=== PATIENT | female | born 1985 | race Caucasian/White ===

== ENCOUNTER 2022-12-26 08:08 | Outpatient (REF) | payer OTHER, SELFPAY ==
[2022-12-26 11:18] LABS: MANUAL DIFF FLAG NO
[2022-12-26 11:41] LABS: Basophils Percent Auto 0.4 % (0-2); Eosinophils Absolute Auto 0.2 X10*3/uL (0.0-0.4); Eosinophils Percent Auto 2.3 % (0-4); Hematocrit 44.3 % (37.0-47.0); Hemoglobin 14.3 g/dl (12.0-16.0); Imm Gran Abs Auto 0.02 X10*3/uL (0.00-0.03); Imm Gran Pct Auto 0.3 % (0.0-0.4); Lymphocytes Percent Auto 28.5 % (20-40); Mean Corpuscular HGB Conc 32.3 g/dl (31.0-35.0); Mean Corpuscular Hemoglobin 28.9 pg (27.0-33.0); Mean Corpuscular Volume 89.7 fL (80.0-98.0); Mean Platelet Volume 10.1 fL (9.4-12.3); Monocytes Absolute Auto 0.4 X10*3/uL (0.1-1.2); Monocytes Percent Auto 5.2 % (2-11); Neutrophils Absolute Auto 4.4 x10*3/uL (2.0-8.3); Neutrophils Percent Auto 63.3 % (45-73); Platelet Count 289 X10*3/uL (160-400); Red Blood Count 4.94 X10*6/uL (4.20-5.50); Red Cell Distribution Width 12.9 % (11.0-16.0)
[2022-12-26 12:34] LABS: Alanine Aminotransferase 10 U/L (0-31); Albumin Level 4.2 g/dL (3.5-5.0); Alkaline Phosphatase 71 U/L (39-117); Anion Gap 13 (12-20); Aspartate Amino Transferase 14 U/L (5-31); Bilirubin Total 0.6 mg/dL (0.0-1.0); Blood Urea Nitrogen 10 mg/dL (9-16); Calcium 9.3 mg/dL (8.4-10.2); Carbon Dioxide 26 mmol/L (22-29); Chloride 106 mmol/L (96-108); Cholesterol 176 mg/dL; Estimated Glomerular Filt Rate > 60; Folate 7.9 ng/mL (> or = 4.0); Glucose Fasting 82 mg/dL (60-99); HDL Cholesterol 54 mg/dL; LDL Cholesterol Calculated 109 mg/dl; Potassium 4.4 mmol/L (3.3-5.1); Rheumatoid Factor < 13.0 IU/mL (<15.0); Sodium 141 mmol/L (135-145); TSH reflex Free T4 1.13 uIU/mL (0.32-4.0); Total Protein 7.2 g/dL (6.5-8.0); Triglycerides 68 mg/dL; Vitamin B12 377 pg/mL (200-900); Vitamin D 25-OH Total 31.4 ng/mL (>30)
[2022-12-31 13:08] LABS: Anti Nuclear Antibody Screen POSITIVE (NEGATIVE)
== END 2022-12-26 08:09 | disposition home or self-care (01) ==
LOC: HO.HMGCLDS 08:08
PROVIDERS: PCP Nurse Practitioner Family; Visit Provider Nurse Practitioner Family
DX: M25.551 Pain in right hip (principal); M25.552 Pain in left hip; Z76.89 Persons encountering health services in other specified circumstances
CPT/HCPCS: 36415; 80053; 80061; 82306; 82607; 82746; 84443; 85025; 86038; 86039; 86431

== ENCOUNTER 2023-02-19 14:28 | Outpatient (AMB) | payer OTHER, SELFPAY ==
[2023-02-19 14:31] VITALS: BP 112/86; PULSE 61; O2SAT 100; BMI 40.2
--- NOTE | 2023-02-19 14:31 | A.OFFPC_ITS ---
Vital Signs 02/19/23 14:31 Height 5 ft 2 in Weight 220 lb BMI 40.2 BP 112/86 Blood Pressure Location Lt brachial Position Sitting Pulse 61 Pulse Source Pulse Oximeter Temp Source Skin Pulse Oximetry (%) 100 Oxygen Delivery Method Room Air Intake Visit Reasons: PE with labs Allergies No Known Allergies Allergy (Verified 02/19/23 14:42) Medication List - Last Reconciled 02/19/23 by RALEIGH Tijerina No Known Home Meds Tobacco use date assessed: 02/19/23 Dental Screening Dental Screen Date: 02/19/23 Did you have a dental visit in the last 12 months?: No Did you have a dental problem in the last 6 months where you did not have access to dental care?: No HPI PE with labs HPI Details Patient is a 37-year-old female presents today physical exam. Medical history significant for depression, anxiety, obesity, bilateral hip pain - patient reports lateral bilateral hip pain that radiate down for long time now- would like to hold off on physical therapy referral, positive LISA-will be seeing rheumatology 03/2023. Patient has an upcoming appointment with gynecology for Pap smear 02/2023. Patient reports that [facility] hear [facility] and they will e-mail her after 04/2023 for an appointment. Patient did not hear from counseling yet, will follow-up on this. Patient reports ongoing anxiety, she meditate, reports thinking constantly. No shortness of breath or chest pain. Recent blood work results reviewed with the patient. [facility] Medical History (Updated 02/20/23 @ 12:56 by RALEIGH Tijerina) Encounter to establish care Obesity (BMI 30-39.9) Surgical History H/O removal of cyst History of adenoidectomy History of placement of ear tubes History of removal of skin mole History of sinus surgery History of tonsillectomy Family History Mother Endometriosis Father No problems noted. Brother No problems noted. Brother No problems noted. Social History Housing: House Alcohol intake: former Patient Tobacco Use Status: Current everyday Tobacco user Cigarettes Per Day: 4 e-Cigarette/Vaping Use: Never Used service: No Current occupational status: unemployed Current occupational exposures/hazards: No Cognitive needs: No Hearing needs: No Vision needs: Yes (glasses/contacts) Questionnaire PHQ-9 Over the last 2 weeks, how often have you been bothered by any of the following problems? 1. Little interest or pleasure in doing things: nearly every day 2. Feeling down, depressed, or hopeless: several days 3. Trouble falling or staying asleep, or sleeping too much: several days 4. Feeling tired or having little energy: nearly every day 5. Poor appetite or overeating: nearly every day 6. Feeling bad about yourself - or that you are a failure or have let yourself or your family down: more than half the days 7. Trouble concentrating on things, such as reading the newspaper or watching television: nearly every day 8. Moving or speaking so slowly that other people could have noticed. Or the opposite - being so fidgety or restless that you have been moving around a lot more than usual: not at all 9. Thoughts that you would be better off or of hurting yourself in some way: not at all Total score: 16 Depression Screening Interpretation: Positive Depression Screening Follow-up: Community Mental Health Worker F/U [id number] - PHQ-9 Billing: Yes Source: Developed by Drs. Jorgito West, Belkys Ferrer, Bennett Mitchell and colleagues, with an educational mohsen from [employer]. Thrive Questionnaire Date Thrive assessed: 12/24/22 AUDIT C Alcohol Use Questionnaire (AUDIT-C) 1. How often do you have a drink containing alcohol?: Never 2. How many drinks containing alcohol do you have on a typical day when you are drinking?: 1 or 2 3. How often do you have six or more drinks on one occasion?: Never Total Score: 0 Score Reviewed/Action Taken: No BERNARD-7 AMB Questionnaire BERNARD-7 Date BERNARD - 7 assessed: 02/19/23 Feeling nervous, anxious, or on edge: 3 = Nearly every day Not being able to stop or control worryin = Nearly every day Worrying too much about different things: 3 = Nearly every day Trouble relaxin = Nearly every day Being so restless that it is hard to sit still: 3 = Nearly every day Becoming easily annoyed or irritable: 3 = Nearly every day Feeling afraid as if something awful might happen: 1 = Several days Total BERNARD-7 score (0-4 normal; 5-9 mild; 10-14 moderate; 15-21 severe): 19 Source: Developed by Drs. Jorgito West, Belkys Ferrer, Bennett Mitchell and colleagues, with an educational mohsen from [employer]. BERNARD-7 Assessment Billing BERNARD-7 Assessment Tool: BERNARD-7 Assessment 37747 Review of Systems Const Denies body aches, Denies chills, Denies fever(s) and Denies headache(s) Eyes Denies change in vision ENT Denies dizziness, Denies otalgia, Denies headache(s), Denies nasal discharge, Denies sinus pain and Denies sore throat Card Denies chest pain, Denies edema, Denies lightheadedness and Denies dyspnea Resp Denies cough and Denies dyspnea GI Denies constipation, Denies diarrhea, Denies nausea and Denies vomiting Denies dysuria Musc Denies myalgias and Reports arthralgias Skin/Breast Denies rash Neuro Denies dizziness and Denies headache(s) Physical exam (Primary Care) Vital Signs: Last Vital Signs Pulse 61 02/19/23 14:31 BP 112/86 02/19/23 14:31 Pulse Ox 100 02/19/23 14:31 Oxygen Delivery Method Room Air 02/19/23 14:31 BMI result Body Mass Index 40.2 Tobacco/Smoking Status: Tobacco use Status Tobacco use date assessed 02/19/23 02/19/23 14:37 Patient Tobacco Use Status Current everyday Tobacco 02/19/23 14:37 e-Cigarette/Vaping Use Never Used 02/19/23 14:37 PHQ-9: PHQ-9 Score PHQ-9: Total score 16 02/19/23 14:44 Depression Screening Interpretation: Positive Depression Screening Follow-up: Community Mental Health Worker F/U Thrive Assessment: Date of Thrive Assessment Date Thrive assessed 12/24/22 02/19/23 14:37 Const General: cooperative and no acute distress Orientation/consciousness: patient oriented x3 HENMT Other: Bilateral TM with scarring, no erythema, history of ear tubes Head: Yes normocephalic and Yes atraumatic Face and sinus: Yes sinuses nontender Mouth: oropharynx normal and moist mucous membranes Throat: Yes posterior oropharynx normal Eyes General: appearance normal, both eyes and all related structures Pupils: Equal, round and reactive pupils present EOM: EOMs intact bilaterally Neck Neck: Yes normal visual inspection, Yes full ROM and Yes no lymphadenopathy Thyroid: Thyroid normal Resp Effort & Inspection: normal respiratory effort and able to speak in complete sentences Auscultation: clear to auscultation bilaterally, no crackles, no rales, no rhonchi and no wheezes Cardio Rate: regular rate Rhythm: regular rhythm Heart sounds: S1 normal heart sound present, S2 normal heart sound present and no murmurs GI Palpation (GI): Soft to palpation, not firm, nontender, no guarding, not rigid and no hepatosplenomegaly Auscultation: normal bowel sounds General: No CVA tenderness Back/Spine/Pelvis Back: No CVA tenderness Skin General skin exam: no rashes or lesions noted Neuro General: patient oriented x3 Cranial nerves: Yes Equal, round and reactive pupils present Gait exam (Neuro): Normal gait present Extrem General: Yes full ROM and No edema Assessment and Plan Assessment & Plan (1) Bilateral hip pain: Code(s): M25.551 - Pain in right hip; M25.552 - Pain in left hip Plan: Will obtain hip x-rays, she does not take anything for pain - not interested at this time Patient would like to hold off on physical therapy referral (2) Cervical cancer screening: Code(s): Z12.4 - Encounter for screening for malignant neoplasm of cervix Plan: Patient has an upcoming appointment with gynecology (3) Anxiety: Code(s): F41.9 - Anxiety disorder, unspecified Plan: Psychiatry and counseling referral - will follow-up - message sent to mental health worker here in the office Trial of hydroxyzine 10 mg b.i.d. p.r.n.-educated about drowsiness (4) Depression: Code(s): F32.A - Depression, unspecified Qualifiers: Depression Type: other depression Qualified Code(s): F32.89 - Other specified depressive episodes Plan: Psychiatry and counseling referral - will follow-up - message sent to mental health worker here in the office Patient would like to hold off on pharmacological intervention at this time Patient denies SI or HI Patient provided with crisis phone number (5) Positive LISA (antinuclear antibody): Code(s): R76.8 - Other specified abnormal immunological findings in serum Plan: Patient has an upcoming appointment with [facility] 03/2023 (6) Morbid obesity with BMI of 40.0-44.9, adult: Code(s): E66.01 - Morbid (severe) obesity due to excess calories; Z68.41 - Body mass index [BMI] 40.0-44.9, adult Plan: Healthy food choices and exercise as tolerated Patient would like to hold off on dietitian or weight management referral at this time (7) Adult general medical exam: Code(s): Z00.00 - Encounter for general adult medical examination without abnormal findings (8) Nicotine dependence: Comment: Smoke cigarettes 3-4/day and marijuana Code(s): F17.200 - Nicotine dependence, unspecified, uncomplicated Plan: Encouraged smoking cessation Plan Follow-up in 1 year for physical exam or sooner as needed Orders: Orders XR hips ROCÍO min 3V 02/19/23 M25.551 - Pain in right hip, M25.552 - Pain in left hip Medications: New hydroxyzine HCl 10 mg PO BID PRN 20 tabs 0RF anxiety F41.9 - Anxiety disorder, unspecified Coding Level of Care Code Est Pt Prev Care 18-39y([id number]) Diagnoses Bilateral hip pain M25.551; M25.552 Cervical cancer screening Z12.4 Anxiety F41.9 Depression F32.89 Depression Type: other depression Positive LISA (antinuclear antibody) R76.8 Morbid obesity with BMI of 40.0-44.9, adult E66.01; Z68.41 Adult general medical exam Z00.00 Nicotine dependence F17.200 Additional Codes BERNARD-7 Assessment Billing - BERNARD-7 Assessment Tool: BERNARD-7 Assessment [id number] ([id number])
== END 2023-02-19 15:03 | disposition home or self-care (01) ==
PROVIDERS: PCP Nurse Practitioner Family; Visit Provider Nurse Practitioner Family
DX: Z00.00 Encounter for general adult medical examination without abnormal findings (principal); F41.9 Anxiety disorder, unspecified; E66.01 Morbid (severe) obesity due to excess calories; Z68.41 Body mass index [BMI] 40.0-44.9, adult; M25.551 Pain in right hip; M25.552 Pain in left hip; F32.89 Other specified depressive episodes; R76.8 Other specified abnormal immunological findings in serum; F17.200 Nicotine dependence, unspecified, uncomplicated
CPT/HCPCS: 99395

== ENCOUNTER 2023-03-11 10:22 | Outpatient (AMB) | payer OTHER, SELFPAY ==
[2023-03-11 10:32] VITALS: BP 120/80; BMI 39.9
--- NOTE | 2023-03-11 10:32 | A.OFFVIS_ITS ---
Intake Vital Signs 03/11/23 10:32 Height 5 ft 2 in Weight 218 lb BMI 39.9 BP 120/80 Intake Visit Reasons: New patient Annual Intake Note: Periods and moods are not manageable , heavy bleeding and strong cramps that medication is not helping and getting cramps towards the end of her period, getting back, hip , and pelvic pain. Energy level dropping right before period starts and feeling rage the day before period starts. Feeling very overwhelmed with mental health and health concerns in general. Dowel Pin Man Required: No Information Interpreted: non-clinical & clinical Lead Teacher: Lead Teacher Present (Aidyn) Allergies No Known Allergies Allergy (Verified 03/11/23 10:39) Is last menstrual period known: Yes Last menstrual period: 02/17/23 Post menopausal: No HPI New patient Annual HPI Details Patient is here for new public health epidemiologist exam it has been at least 5 years since she has had 1. She has a number of concerns today. She has noticed that her periods have gotten heavier and cramp ear and she is troubled by the increased mood changes that she has before her. And then she suffers through her. And then she has a few days of feeling better before the whole cycle starts again. She wonders if she has got PCOS she wonders if she has endometriosis she has heard about fibroids. She has struggled with weight gain and loss though she feels she has been somewhat maintaining at around 200 though today she is at 02:18 though she notes a couple of lb weight loss since the last time she was weighed. She has been challenged by depression and anxiety and she wonders if she has ADHD and other diagnoses. She has been paying a lot of internal intention to the challenges of life and is currently living with her parents. She has been having lots of somatic symptoms and fatigue and discomfort in her body so much so that it makes it hard to move and to get down on the floor and do exercises because she is sore to start with before she even gets going. She does have a dog that she walks but he gets very excited and he is very strong and she worries that she would not have the strength to control him if he gets excited about another animal or something. She has an appointment in April for a preliminary discussion to get evaluated for ADHD and she has an appointment coming up though she has been told that would be by phone with psychiatry within this institution and she is hoping that there will be a therapist connected with that appointment as well. She has recently seen her primary care provider and has had a whole lot of blood work that done that was fasting and she said all the levels were fine the exception of the LISA which was positive so she is awaiting an appointment with Rheumatology in March to get evaluated for that. She wonders about the PCOS and what else could be explaining all of her symptoms. She is not currently sexually active and she made a choice sometime ago to use condoms for control though she had used a Mirena in the past to help control her periods and she recalls that it did do that but she is not at all interested in having a Mirena again. She wants to stay away from hormones and if she can fix something by understanding what the issue is and making it better without hormones as she would prefer that. [facility] Medical History Encounter to establish care Obesity (BMI 30-39.9) Surgical History H/O removal of cyst History of adenoidectomy History of placement of ear tubes History of removal of skin mole History of sinus surgery History of tonsillectomy Family History (Updated 03/11/23 @ 10:40 by ANKITA Jaime) Mother Endometriosis Father No problems noted. Brother No problems noted. Brother No problems noted. Maternal Grandmother Ovarian cancer Social History (Updated 03/11/23 @ 10:40 by ANKITA Jaime) Housing: House Alcohol intake: former Patient Tobacco Use Status: Current everyday Tobacco user Cigarettes Per Day: 4 e-Cigarette/Vaping Use: Never Used Substance Use Type: Marijuana service: No Current occupational status: unemployed Current occupational exposures/hazards: No Cognitive needs: No Hearing needs: No Vision needs: Yes (glasses/contacts) Female Reproductive History Menstrual Age of Menarche: 13 Duration of menses: 6-7 days Date of last menstrual period: 02/17/23 control method: none Total pregnancies: 1 Ab induced: 1 Physical Exam Vital Signs: Last Vital Signs BP 120/80 03/11/23 10:32 BMI result Body Mass Index 39.9 Const Other: Patient has some thinning of her hair on her scalp and has increased facial hair that she plucks. She notes some increased acne where she has plucked General: healthy appearing, comfortable, no acute distress, well developed and alert Nutritional Appearance: average body habitus and obese Orientation/consciousness: patient oriented x3 Limitations: no limitations HEENT Head: Yes normocephalic Neck Neck: Yes normal visual inspection Thyroid: Thyroid normal Chest Chest palpation & inspection: normal inspection of the chest Breast/axilla inspection: normal inspection of the breasts and normal inspection of the axillae Breast/axilla palpation: normal palpation of the breasts and normal palpation of the axillae Resp Effort & Inspection: normal respiratory effort GI Inspection: Yes normal to inspection, No Abdominal wall edema and No distended Palpation (GI): Soft to palpation and nontender General: Yes bladder normal to palpation External Female Exam: normal external appearance and normal appearance of the urethra Speculum Exam - Vagina: normal appearance of the vagina, normal palpation and normal vaginal discharge Speculum Exam - Cervix: normal appearance of the cervix, normal palpation, Nulliparous cervix present, nontender and Other cervical findings present (There is a cervical polyp in the os friable with Pap.) Bimanual exam- vagina & uterus: normal bimanual exam, normal palpation, uterine size normal, bladder normal to palpation, consistency normal, normal palpation, uterine mobility normal, uterine shape normal, No Cervical tenderness present, non-tender and no cervical motion tenderness Bimanual Exam- Adnexa, other: normal adnexae, no masses, normal and No adnexal tenderness Neuro General: patient oriented x3 Assessment & Plan Assessment & Plan (1) Morbid obesity with BMI of 40.0-44.9, adult: Code(s): E66.01 - Morbid (severe) obesity due to excess calories; Z68.41 - Body mass index [BMI] 40.0-44.9, adult (2) Cervical cancer screening: Code(s): Z12.4 - Encounter for screening for malignant neoplasm of cervix (3) Anxiety: Code(s): F41.9 - Anxiety disorder, unspecified (4) Depression: Code(s): F32.A - Depression, unspecified Qualifiers: Depression Type: other depression Qualified Code(s): F32.89 - Other specified depressive episodes (5) Cervical polyp: Code(s): N84.1 - Polyp of cervix uteri (6) Well woman exam with routine gynecological exam: Code(s): Z01.419 - Encounter for gynecological examination (general) (routine) without abnormal findings (7) Nicotine dependence: Comment: Smoke cigarettes 3-4/day and marijuana Code(s): F17.200 - Nicotine dependence, unspecified, uncomplicated (8) Screen for sexually transmitted diseases: Code(s): Z11.3 - Encounter for screening for infections with a predominantly sexual mode of transmission (9) Dysmenorrhea, unspecified: Code(s): N94.6 - Dysmenorrhea, unspecified (10) Hirsutism: Code(s): L68.0 - Hirsutism Plan Patient is here for new public health epidemiologist exam it has been at least 5 years since she has had 1. She has a number of concerns today. She has noticed that her periods have gotten heavier and cramp ear and she is troubled by the increased mood changes that she has before her. And then she suffers through her. And then she has a few days of feeling better before the whole cycle starts again. She wonders if she has got PCOS she wonders if she has endometriosis she has heard about fibroids. She has struggled with weight gain and loss though she feels she has been somewhat maintaining at around 200 though today she is at 02:18 though she notes a couple of lb weight loss since the last time she was weighed. She has been challenged by depression and anxiety and she wonders if she has ADHD and other diagnoses. She has been paying a lot of internal intention to the challenges of life and is currently living with her parents. She has been having lots of somatic symptoms and fatigue and discomfort in her body so much so that it makes it hard to move and to get down on the floor and do exercises because she is sore to start with before she even gets going. She does have a dog that she walks but he gets very excited and he is very strong and she worries that she would not have the strength to control him if he gets excited about another animal or something. She has an appointment in April for a preliminary discussion to get evaluated for ADHD and she has an appointment coming up though she has been told that would be by phone with psychiatry within this institution and she is hoping that there will be a therapist connected with that appointment as well. She has recently seen her primary care provider and has had a whole lot of blood work that done that was fasting and she said all the levels were fine the exception of the LISA which was positive so she is awaiting an appointment with Rheumatology in March to get evaluated for that. She wonders about the PCOS and what else could be explaining all of her symptoms. She is not currently sexually active and she made a choice sometime ago to use condoms for control though she had used a Mirena in the past to help control her periods and she recalls that it did do that but she is not at all interested in having a Mirena again. She wants to stay away from hormones and if she can fix something by understanding what the issue is and making it better without hormones as she would prefer that. All of these issues were discussed at great length. I will order some lab work that maybe point to some hormonal imbalances such as PCOS in addition I am ordering a pelvic ultrasound to check for fibroids her any other issues and we will have a visit afterwards to discuss. I did discuss how some of the symptoms she is experiencing might be ameliorated by use of a Mirena again but she is not interested in it at this time I did discuss the other options which would not be recommended in her case including control pills because of her smoking and other her methods that would promote increased risk of weight gain and obesity such as Depo-Provera and Nexplanon. I will refer her to Dr. Cooper for evaluation and removal of the cervical polyp but we will await the Pap smear results 1st. She and I will have a visit after the pelvic ultrasound to discuss the results discussed that endometriosis diagnosis is arrived at after symptomatic treatment of dysmenorrhea is attempted and final diagnosis is usually made laparoscopically. Discussed also the very real challenges of moving past areas of frustration in one's life be a they physical or emotional or otherwise and that sometimes really pushing oneself to trying get moving can be a helpful tool though it is very challenging I did give her information about the weight loss program which she may wish to seek a referral for. I also gave her the written information about the Mirena IU S. I will have a visit with her after the ultrasound and labs. Orders: Orders Bacterial Vaginosis Panel Today Z01.419 - Encounter for gynecological examination (general) (routine) without abnormal findings CT NG by PCR Today Z01.419 - Encounter for gynecological examination (general) (routine) without abnormal findings US pelvic and transvaginal Today E66.01 - Morbid (severe) obesity due to excess calories, F17.200 - Nicotine dependence, unspecified, uncomplicated, F32.A - Depression, unspecified, F41.9 - Anxiety disorder, unspecified, N84.1 - Polyp of cervix uteri, N94.6 - Dysmenorrhea, unspecified, Z01.419 - Encounter for gynecological examination (general) (routine) without abnormal findings, Z11.3 - Encounter for screening for infections with a predominantly sexual mode of transmission, Z12.4 - Encounter for screening for malignant neoplasm of cervix, Z68.41 - Body mass index [BMI] 40.0-44.9, adult Hepatitis B Surface Antigen Today Z11.3 - Encounter for screening for infections with a predominantly sexual mode of transmission Hepatitis C Antibody Today Z11.3 - Encounter for screening for infections with a predominantly sexual mode of transmission HIV Ab/Ag Today Z11.3 - Encounter for screening for infections with a predominantly sexual mode of transmission Syphilis Screen Today Z11.3 - Encounter for screening for infections with a predominantly sexual mode of transmission DHEA Sulfate Today L68.0 - Hirsutism, N94.6 - Dysmenorrhea, unspecified Lutenizing Hormone Today L68.0 - Hirsutism, N94.6 - Dysmenorrhea, unspecified Testosterone, Free/Total Today L68.0 - Hirsutism, N94.6 - Dysmenorrhea, unspecified Pap Smear Today Z01.419 - Encounter for gynecological examination (general) (routine) without abnormal findings Coding Level of Care Code New Pt Prev Care [id number]([id number] Diagnoses Morbid obesity with BMI of 40.0-44.9, adult E66.01; Z68.41 Cervical cancer screening Z12.4 Anxiety F41.9 Depression F32.89 Depression Type: other depression Cervical polyp N84.1 Well woman exam with routine gynecological exam Z01.419 Nicotine dependence F17.200 Screen for sexually transmitted diseases Z11.3 Dysmenorrhea, unspecified N94.6 Hirsutism L68.0
== END 2023-03-11 12:54 | disposition home or self-care (01) ==
LOC: HO.HWS 10:22
PROVIDERS: PCP Nurse Practitioner Family; Visit Provider Advanced Practice Midwife
DX: Z01.419 Encounter for gynecological examination (general) (routine) without abnormal findings (principal); E66.01 Morbid (severe) obesity due to excess calories; Z68.41 Body mass index [BMI] 40.0-44.9, adult; Z12.4 Encounter for screening for malignant neoplasm of cervix; F41.9 Anxiety disorder, unspecified; F32.89 Other specified depressive episodes; N84.1 Polyp of cervix uteri; F17.200 Nicotine dependence, unspecified, uncomplicated; Z11.3 Encounter for screening for infections with a predominantly sexual mode of transmission; N94.6 Dysmenorrhea, unspecified; L68.0 Hirsutism
CPT/HCPCS: 99385

== ENCOUNTER 2023-03-11 10:22 | Outpatient (REF) | payer OTHER, SELFPAY ==
[2023-03-12 06:21] LABS: CT PCR NOT DETECTED (Not Detect.); NG PCR NOT DETECTED (Not Detect.)
[2023-03-12 12:07] LABS: BV Int Neg Control Negative (Negative); BV Int Pos Control Positive (Positive)
[2023-03-17 23:08] LABS: HPV mRNA E6/E7 rflx Not Detected (Not Detected)
== END 2023-03-11 10:23 | disposition home or self-care (01) ==
LOC: HO.LNP 10:22
PROVIDERS: PCP Nurse Practitioner Family; Visit Provider Advanced Practice Midwife
DX: Z01.419 Encounter for gynecological examination (general) (routine) without abnormal findings (principal); E66.01 Morbid (severe) obesity due to excess calories; Z12.4 Encounter for screening for malignant neoplasm of cervix; F41.9 Anxiety disorder, unspecified; F32.89 Other specified depressive episodes; N84.1 Polyp of cervix uteri; F17.200 Nicotine dependence, unspecified, uncomplicated; Z11.3 Encounter for screening for infections with a predominantly sexual mode of transmission; N94.6 Dysmenorrhea, unspecified; L68.0 Hirsutism; F17.210 Nicotine dependence, cigarettes, uncomplicated
CPT/HCPCS: 0353U; 87480; 87510; 87624; 87660; 88142

== ENCOUNTER 2023-03-20 12:56 | Outpatient (REF) | payer OTHER, SELFPAY ==
--- NOTE | ~2023-03-20 | US_ITS ---
EXAMINATION: US PELVIS CLINICAL INFORMATION: Morbid/severe obesity due to excess calories. COMPARISON: None available. TECHNIQUE: Ultrasound of the pelvis is performed using both transabdominal and transvaginal transducers along with Doppler. Transvaginal imaging is performed due to inadequate visualization transabdominally. FINDINGS: UTERUS: The uterus is anteverted and measures 7.5 x 3.3 x 4.7. The double wall endometrial thickness is 0.4 cm. The uterus is smooth in contour and has heterogeneous myometrium. No visible fibroid. There is a complex nabothian cyst with central echoes. It measures 1.4 x 1.2 x 1.2 cm. ADNEXA: Both ovaries are visualized. There is normal color flow to the adnexa. There is no ovarian torsion. There is no pelvic ascites or fluid collection. Right ovary measures 3.3 x 2.4 x 2.2 cm and volume 8.9 mL. Left ovary measures 2.7 x 2.0 x 2.0 cm. 5.6 mL US/US pelvic and transvaginal IMPRESSION: 1. Complex nabothian cyst measuring 1.4 cm. 2. The uterus is unremarkable.
== END 2023-03-20 12:57 | disposition home or self-care (01) ==
LOC: HO.US 12:56
PROVIDERS: PCP Nurse Practitioner Family; Visit Provider Advanced Practice Midwife
DX: N84.1 Polyp of cervix uteri (principal); N94.6 Dysmenorrhea, unspecified; E66.01 Morbid (severe) obesity due to excess calories; Z68.41 Body mass index [BMI] 40.0-44.9, adult; F17.200 Nicotine dependence, unspecified, uncomplicated
CPT/HCPCS: 76830; 76856

== ENCOUNTER 2023-04-08 13:20 | Outpatient (AMB) | payer OTHER, SELFPAY ==
[2023-04-08 13:36] VITALS: BP 122/78; BMI 39.9
--- NOTE | 2023-04-08 13:36 | MHC.OFFVIS ---
Intake Vital Signs 04/08/23 13:36 Height 5 ft 2 in Weight 218 lb BMI 39.9 BP 122/78 Intake Visit Reasons: Ultrasound Results Intake Note: last time she was in came back positive gardnerella and at the time didn't have sx but now is having some odor sometimes and would like antibiotic. Maintenance Trainer Required: No Information Interpreted: non-clinical & clinical Nursery Attendant: Nursery Attendant Present (Aidyn) Allergies No Known Allergies Allergy (Verified 04/08/23 13:41) Is last menstrual period known: Yes Last menstrual period: 03/15/23 Post menopausal: No HPI Ultrasound Results HPI Details Patient is here to review her ultrasound results and also lab work. However she completely forgot that she had lab work ordered which is okay and she will get it done at some other time she has an appointment coming up next week for evaluation of a cervical polyp with Dr. Cooper so she thinks that she will come and get her lab work done that day it does not need to be fasting though she says she probably will fast. She wanted also to talk about the Gardnerella she occasionally does have an odor and that worries her we discussed this and the bacterial vaginosis/Gardnerella finding on the testing and I have offered her treatment and described the options of metronidazole p.o. versus the gel and there particular side effect issues. She chose the gel and prescription was sent to her pharmacy. When her test results come back she is on the portal and if anything is abnormal and if she has any questions she is going to call and schedule a tele visit to review them so she does not have to miss work too much. Additionally I reviewed her ultrasound which was normal with the exception of the complex nabothian cyst but that can be a normal finding as well. Also discussed her Pap smear. In addition she was talking again about how she just feels physically exhausted and that she is not able to do the things that she was able to do before and she does not have the strength that she could have before. 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 She will be seeing Rheumatology to follow-up on her LISA test that was positive. She says she does what ever exercises she can but they are somewhat limited because sometime she is just to exhausted. I did share with her 1 program of stretching and movement that is available online, and on TV, and with tapes that could prove valuable for her particular concerns and I gave her information about how to access it [facility] Medical History Encounter to establish care Obesity (BMI 30-39.9) Surgical History History of sinus surgery H/O removal of cyst History of removal of skin mole History of adenoidectomy History of tonsillectomy History of placement of ear tubes Family History Mother Endometriosis Father No problems noted. Brother No problems noted. Brother No problems noted. Maternal Grandmother Ovarian cancer Social History Housing: House Alcohol intake: former Patient Tobacco Use Status: Current everyday Tobacco user Cigarettes Per Day: 4 e-Cigarette/Vaping Use: Never Used Substance Use Type: Marijuana service: No Current occupational status: unemployed Current occupational exposures/hazards: No Cognitive needs: No Hearing needs: No Vision needs: Yes (glasses/contacts) Female Reproductive History Menstrual Age of Menarche: 13 Date of last menstrual period: 03/15/23 control method: none Date of last pap smear: 03/13/23 (negative) Physical Exam Vital Signs: Last Vital Signs BP 122/78 04/08/23 13:36 BMI result Body Mass Index 39.9 Results Reviewed Results Reviewed: Name: Park Santos Age/Sex: 37/F Attending: Lindsay Hirsch CNM : 1985 Submitted by: Lindsay Hirsch CNM Copies to: Wendy Gutierrez MR #: [id number] Status: DEP REF Collected: 03/11/23 Location: [facility] Received: 03/13/23 Interpretation Satisfactory for evaluation. Mild inflammation. Negative for intraepithelial lesion or malignancy. HPV mRNA E6/E7: NOT DETECTED This assay detects E6/E7 viral messenger RNA (mRNA) from 14 high-risk HPV types (16, 18, 31, 33, 35, 39, 45, 51, 52, 56, 58, 59, 66, 68) HPV testing performed by [facility], [place], [place]. See reference laboratory pion of the EMR for entire report. Clinical Information LMP: 02/17/23 Previous PAP test: Unknown date/findings Material Received ThinPrep-Cervical Copies To Lindsay Hirsch CNM [address] [place] [address] [address]. [address] [place] [address] Wendy Gutierrez [address] [place] [address] Electronically Signed By: BRENT Dyson (ASCP) 04/06/23 1338 The Pap Test is a screening procedure with the inherent possibility of both false negative and false positive results. Results should be interpreted in the context of historic and current clinical findings. Reliability of the Pap Test is enhanced by performing the test on a regular repetitive basis. Patient: Park Santos Age/Sex: 37/F MR#: [id number] Page [address] of [address] [address] Ultrasound Report Signed Patient: Park Santos MR#: [id number] : 1985 Acct:[id number] Age/Sex: 37 / F ADM Date: 03/20/23 Loc: . Attending Dr: Lindsay Hirsch CNM Ordering Physician: Lindsay Hirsch CNM Date of Service: 03/20/23 Procedure(s): US pelvic and transvaginal Accession Number(s): [id number] cc: Lindsay Hirsch CNM; Wendy GutierrezP~ EXAMINATION: US PELVIS CLINICAL INFORMATION: Morbid/severe obesity due to excess calories. COMPARISON: None available. TECHNIQUE: Ultrasound of the pelvis is performed using both transabdominal and transvaginal transducers along with Doppler. Transvaginal imaging is performed due to inadequate visualization transabdominally. FINDINGS: UTERUS: The uterus is anteverted and measures 7.5 x 3.3 x 4.7. The double wall endometrial thickness is 0.4 cm. The uterus is smooth in contour and has heterogeneous myometrium. No visible fibroid. There is a complex nabothian cyst with central echoes. It measures 1.4 x 1.2 x 1.2 cm. ADNEXA: Both ovaries are visualized. There is normal color flow to the adnexa. There is no ovarian torsion. There is no pelvic ascites or fluid collection. Right ovary measures 3.3 x 2.4 x 2.2 cm and volume 8.9 mL. Left ovary measures 2.7 x 2.0 x 2.0 cm. 5.6 mL US/US pelvic and transvaginal IMPRESSION: 1. Complex nabothian cyst measuring 1.4 cm. 2. The uterus is unremarkable. Dictated By: Jermain Ceballos MD Signed By: <Electronically signed by Jermain Ceballos MD in OV> 03/24/23 1334 DD/ 1329 TD/TT: Final Assembly Inspector: JENNIFER Name: Park Santos Age/Sex: 37/F : 1985 Unit#: [id number] Attend Dr: Lindsay Hirsch CNM Re03/11/23 Status: DEP REF Location: [facility] Disch: SPEC : [id number] [place]: 03/11/23-1021 STATUS: COMP REQ : [id number] RECD: 03/11/23-[address]: Lindsay Hirsch CNM COMP: 03/12/23-120 ENTERED: 03/11/23-[address] [facility] [address]: Wendy Gutierrez [facility] ORDERED: BV Panel Test Result Flag Reference Site Trichomonas DNA Negative Negative Gardnerella DNA Positive A Negative Licha DNA Negative Negative Assessment & Plan Assessment & Plan (1) Hirsutism: Code(s): L68.0 - Hirsutism (2) Dysmenorrhea, unspecified: Code(s): N94.6 - Dysmenorrhea, unspecified (3) Screen for sexually transmitted diseases: Code(s): Z11.3 - Encounter for screening for infections with a predominantly sexual mode of transmission (4) Cervical polyp: Code(s): N84.1 - Polyp of cervix uteri (5) Morbid obesity with BMI of 40.0-44.9, adult: Code(s): E66.01 - Morbid (severe) obesity due to excess calories; Z68.41 - Body mass index [BMI] 40.0-44.9, adult (6) Cervical cancer screening: Comment: 03/11/2023 Pap is negative with negative HPV. Code(s): Z12.4 - Encounter for screening for malignant neoplasm of cervix Plan Patient is here to review her ultrasound results and also lab work. However she completely forgot that she had lab work ordered which is okay and she will get it done at some other time she has an appointment coming up next week for evaluation of a cervical polyp with Dr. Cooper so she thinks that she will come and get her lab work done that day it does not need to be fasting though she says she probably will fast. She wanted also to talk about the Gardnerella she occasionally does have an odor and that worries her we discussed this and the bacterial vaginosis/Gardnerella finding on the testing and I have offered her treatment and described the options of metronidazole p.o. versus the gel and there particular side effect issues. She chose the gel and prescription was sent to her pharmacy. When her test results come back she is on the portal and if anything is abnormal and if she has any questions she is going to call and schedule a tele visit to review them so she does not have to miss work too much. Additionally I reviewed her ultrasound which was normal with the exception of the complex nabothian cyst but that can be a normal finding as well. Also discussed her Pap smear. In addition she was talking again about how she just feels physically exhausted and that she is not able to do the things that she was able to do before and she does not have the strength that she could have before. 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 She will be seeing Rheumatology to follow-up on her LISA test that was positive. She says she does what ever exercises she can but they are somewhat limited because sometime she is just to exhausted. I did share with her 1 program of stretching and movement that is available online, and on TV, and with tapes that could prove valuable for her particular concerns and I gave her information about how to access it Medications: New metronidazole 0.75%(37.5mg/5gram) 1 appful vaginal BID 5 days 70 grams 2RF Coding Level of Care Code Est Pt Level 3 (12362) Diagnoses Hirsutism L68.0 Dysmenorrhea, unspecified N94.6 Screen for sexually transmitted diseases Z11.3 Cervical polyp N84.1 Morbid obesity with BMI of 40.0-44.9, adult E66.01; Z68.41 Cervical cancer screening Z12.4
== END 2023-04-08 14:28 | disposition home or self-care (01) ==
PROVIDERS: PCP Nurse Practitioner Family; Visit Provider Advanced Practice Midwife
DX: L68.0 Hirsutism (principal); N94.6 Dysmenorrhea, unspecified; Z11.3 Encounter for screening for infections with a predominantly sexual mode of transmission; N84.1 Polyp of cervix uteri; E66.01 Morbid (severe) obesity due to excess calories; Z68.41 Body mass index [BMI] 40.0-44.9, adult; Z12.4 Encounter for screening for malignant neoplasm of cervix
CPT/HCPCS: 99213

== ENCOUNTER → 2023-04-08 13:20 | Outpatient (BNVA) | payer OTHER, SELFPAY | PROVIDERS: PCP Nurse Practitioner Family; Visit Provider Advanced Practice Midwife | DX: L68.0 Hirsutism (principal); Z11.3 Encounter for screening for infections with a predominantly sexual mode of transmission; Z12.4 Encounter for screening for malignant neoplasm of cervix; N94.6 Dysmenorrhea, unspecified; N84.1 Polyp of cervix uteri; E66.01 Morbid (severe) obesity due to excess calories; Z68.39 Body mass index [BMI] 39.0-39.9, adult | CPT/HCPCS: 99212 ==

== ENCOUNTER 2023-04-15 08:45 | Outpatient (AMB) | payer OTHER, SELFPAY ==
[2023-04-15 08:47] VITALS: BP 120/62; PULSE 80; TEMP 36.4; O2SAT 98; BMI 39.9
--- NOTE | 2023-04-15 08:47 | A.OFFVIS_ITS ---
Intake Vital Signs 04/15/23 08:47 Height 5 ft 2 in Weight 218 lb 0.595 oz BMI 39.9 BP 120/62 Blood Pressure Location Lt brachial Position Sitting Pulse 80 Pulse Source Pulse Oximeter Temp 97.5 F Temp Source Skin Pulse Oximetry (%) 98 Oxygen Delivery Method Room Air Intake Visit Reasons: Abnormal lab Intake Note: New patient presents today for abnormal labs. Per patient, here for +LISA. c/o muscle pain, joint pains, back pain, neck pain, kevin shoulder pain, kevin hand numbness and tingling, kevin hip pain, muscle weakness, feet pain (only in the morning) Publications Inspector Required: No Accompanied by: Self / Same As Patient Allergies No Known Allergies Allergy (Verified 04/15/23 14:52) Medication List - Last Reconciled 04/15/23 by Demarcus Pfeiffer MD hydroxyzine HCl 10 mg PO BID PRN metronidazole 0.75%(37.5mg/5gram) 1 appful vaginal BID 5 days HPI HPI Comments History of Present Illness Details The patient presents for evaluation of multiple areas of pain and positive LISA. She relates that about a year ago she noted the onset of migratory pains involving the neck, shoulders, forearms, lower back, lateral hips, ankles and week feet. 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 However even after taking a week off she was still having scattered muscle pains. She is doing some stretching exercises. She has had a history of some binge drinking in the past. Since stopping the drinking she has noted more anxiety, weight gain, and headache. [facility] Medical History Encounter to establish care Obesity (BMI 30-39.9) Surgical History History of sinus surgery H/O removal of cyst History of removal of skin mole History of adenoidectomy History of tonsillectomy History of placement of ear tubes Family History Mother Endometriosis Father No problems noted. Brother No problems noted. Brother No problems noted. 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 Some decreased energy in the last year. Negative for appetite change, fever, chills, malaise Eyes Details: Frequent headaches. Negative for vision change, dry eyes, and dizziness ENT Details: Occasional tinnitus. Negative for hearing change, oral ulcer, nose bleeds and oral dryness. Card Details: She in the past has noted some palpitations and chest tightness when she gets anxious. Negative chest pain, edema and syncope Resp Details: Negative for SOB, cough and wheezing GI Details: She has alternating periods of constipation and the occasional nausea as well. Negative indigestion/heartburn, abdominal pain, bowel changes and bloody stool. Details: Negative for dysuria, hematuria, nocturia, decreased force/flow and genital discharge Skin/Breast Details: Negative for itching, rash, hives, Raynaud's symptoms, sun sensitivity, and skin cancer Neuro Details: Negative for epilepsy, palsy, stroke, changes in speech, tingling and weakness Psych Details: Anxiety at times, she is seeing therapist.Negative for anxiety, depression and stress Endo Details: Negative for polyuria and polydypsia Damon/Lymph Details: Negative for excessive bruising or bleeding. Physical Exam Vital Signs: Last Vital Signs Temp 97.5 F 04/15/23 08:47 Pulse 80 04/15/23 08:47 BP 120/62 04/15/23 08:47 Pulse Ox 98 04/15/23 08:47 Oxygen Delivery Method Room Air 04/15/23 08:47 BMI result Body Mass Index 39.9 APPEARANCE: Patient in no acute distress EYES no redness, pupils equal and reactive to light, eyelids normal EARS: External ear normal, canal clear and tympanic membrane normal. NOSE/SINUS: Airflow through both nares, no nasal discharge, no bleeding THROAT: Oral mucosa moist, no ulcerations NECK: No thyromegaly or masses, no adenopathy, trachea midline. HEART: Regulrar rhythm, S1-S2 heard, no murmurs, rubs or gallops. LUNG: Clear to percussion and auscultation ABD: Normal bowel sounds, no organomegaly, masses or tenderness. EXTREMITIES: No edema, no calf tenderness, normal peripheral pulses. NEURO: Oriented and alert x3. No focal weakness. Reflexes symmetric. Gait normal. SKIN: No inflammatory or neoplastic lesions. Normal color and turgor JOINT EXAM:.?? Cervical Spine:.? Full range of motion without pain; no tenderness. Thoracic Spine:.? No scoliosis.? No tenderness on palpation. Lumbar Spine:.? Alignment normal.? Full range of motion without pain, no tenderness. Chest Wall:.? Slight tenderness the right sternoclavicular joint but no swelling. Elsewhere no tenderness, swelling, increased warmth or erythema. Hands:.? Normal pain-free range of motion without tenderness, swelling, increased warmth or erythema. Able to make a full fist and has a good trucker hand strength. Wrists:.? Normal pain-free range of motion without tenderness, swelling, increased warmth or erythema. Elbows:. Normal pain-free range of motion without tenderness, swelling, increased warmth or erythema. Shoulders:.?? Full range of motion without pain. No tenderness, weakness, swelling, increased warmth or erythema. Hips:.? Full range of motion without pain. Hip bursa:.? No tenderness. Knees:.?? Normal pain-free range of motion without tenderness, swelling, increased warmth or erythema.? There is no effusion or crepitation Ankles:.? Normal pain-free range of motion without tenderness, swelling, increased warmth or erythema. Feet:.? Normal pain-free range of motion without tenderness, swelling, increased warmth or erythema. Tender points:.? Mild tenderness to digital palpation at the occiput, trapezius, second rib, lateral epicondyle, knees, greater trochanter and gluteal area bilaterally.? Results Reviewed Results Reviewed: Laboratory Tests 12/26/22 08:13 Hgb 14.3 Plt Count 289 Creatinine 0.76 AST 14 ALT 10 Rheumatoid Factor < 13.0 LISA Titer 1:1280 H Laboratory Tests 12/26/22 08:13 TSH 1.13 Assessment & Plan Assessment & Plan (1) Low back pain: Code(s): M54.50 - Low back pain, unspecified Qualifiers: Chronicity: chronic Back pain laterality: bilateral (2) Anxiety: Code(s): F41.9 - Anxiety disorder, unspecified (3) Positive LISA (antinuclear antibody): Code(s): R76.8 - Other specified abnormal immunological findings in serum Plan She has some scattered pains without signs of an active inflammatory arthritis. There are many tender points. This looks like some fibromyalgia. She also has some associated symptoms with headache, irritable bowel symptoms, and anxiety. We will check into the LISA further with further blood work and urine testing. Given the prominence of her back symptoms and her relatively young age I will check some LS spine films. Light aerobic activity is encouraged. I encouraged her follow-up with her primary doctor and therapist about additional medicine for anxiety. Other treatment options for fibromyalgia could be considered but I think in light of the significant anxiety symptoms an SSRI might be the way to go. We will get back to her with the results of her testing. Orders: Orders Erythrocyte Sedimentation Rate Today R76.8 - Other specified abnormal immunological findings in serum Complement C3 Today R76.8 - Other specified abnormal immunological findings in serum Protein Creatinine Ratio, Ur Today R76.8 - Other specified abnormal immunological findings in serum XR lumbar spine 2-3V Today M54.50 - Low back pain, unspecified Anti DNA DS Antibody Today R76.8 - Other specified abnormal immunological findings in serum Anti Extractable Nuclear Ag Today R76.8 - Other specified abnormal immunological findings in serum Complement C4 Today R76.8 - Other specified abnormal immunological findings in serum Coding Level of Care Code New Pt Level 3 (29962) Diagnoses Low back pain M54.50 Chronicity: chronic Back pain laterality: bilateral Anxiety F41.9 Positive LISA (antinuclear antibody) R76.8
== END 2023-04-15 09:39 | disposition home or self-care (01) ==
PROVIDERS: PCP Nurse Practitioner Family; Visit Provider Internal Medicine Rheumatology
DX: M54.50 Low back pain, unspecified (principal); F41.9 Anxiety disorder, unspecified; R76.8 Other specified abnormal immunological findings in serum
CPT/HCPCS: 99203

== ENCOUNTER → 2023-04-15 08:45 | Outpatient (BNVA) | payer OTHER, SELFPAY | PROVIDERS: PCP Nurse Practitioner Family; Visit Provider Internal Medicine Rheumatology ==

== ENCOUNTER 2023-04-15 09:43 | Outpatient (REF) | payer OTHER, SELFPAY ==
--- NOTE | ~2023-04-15 | XR_ITS ---
EXAMINATION: XR BILATERAL HIPS WITH AP PELVIS CLINICAL INFORMATION: Pain in the right hip COMPARISON: None available. TECHNIQUE: AP view of the pelvis and single views of each hip were obtained. FINDINGS: No fracture. Hip joint spaces are maintained. Alignment is anatomic. Sacroiliac joints and pubic symphysis are normal. No abnormal soft tissue calcifications. XR/XR hips ROCÍO min 3V IMPRESSION: Normal pelvis and hips.
--- NOTE | ~2023-04-15 | XR_ITS ---
EXAMINATION: XR LUMBOSACRAL SPINE CLINICAL INFORMATION: Low back pain COMPARISON: None available. TECHNIQUE: Three views of the lumbosacral spine. FINDINGS: The vertebral bodies and posterior elements are normal. There is straightening of lumbar lordosis. The disc spaces are preserved and the vertebral alignment is normal. The paraspinal soft tissues are normal. XR/XR lumbar spine 2-3V IMPRESSION: Muscle spasm
[2023-04-15 11:04] LABS: Creatinine Urine 71.29 mg/dL; Total Protein Urine Random < 7 mg/dL (<12)
[2023-04-15 11:23] LABS: Erythrocyte Sedimentation Rate 23 MM/HR (0-20)
[2023-04-16 04:07] LABS: Syphilis Screen Nonreactive (Nonreactive)
[2023-04-16 04:33] LABS: HIV AB/AG Nonreactive (Nonreactive); HIV Num 1 0.04 S/CO (0.00-0.99); Hepatitis B Surface Antigen Negative (Negative); ~HepC Num1 0.07 S/CO (0.00-0.79); ~Hepatitis C Antibody Nonreactive (Nonreactive)
[2023-04-16 18:14] LABS: DHEA Sulfate 139 mcg/dL (19-237); Lutenizing Hormone 6.3 mIU/mL
[2023-04-16 20:44] LABS: Prolactin 3.3 ng/mL
[2023-04-16 21:53] LABS: Anti DNA DS Antibody <1 IU/mL; SM/Ribonucleoprotein Ab <1.0 NEG AI (<1.0 NEG); Smith Protein <1.0 NEG AI (<1.0 NEG)
[2023-04-17 02:34] LABS: Complement C3 181 mg/dL (83-193)
[2023-04-19 15:58] LABS: Testosterone, Free 2.8 pg/mL (0.1-6.4); Testosterone, Total 26 ng/dL (2-45)
== END 2023-04-15 09:44 | disposition home or self-care (01) ==
LOC: HO.10HDL 09:43
PROVIDERS: Advanced Practice Midwife; Obstetrics & Gynecology; Visit Provider Internal Medicine Rheumatology
DX: Z11.3 Encounter for screening for infections with a predominantly sexual mode of transmission (principal); Z11.4 Encounter for screening for human immunodeficiency virus [HIV]; R76.8 Other specified abnormal immunological findings in serum; M25.551 Pain in right hip; M25.552 Pain in left hip; M54.50 Low back pain, unspecified; L68.0 Hirsutism; N94.6 Dysmenorrhea, unspecified; N84.1 Polyp of cervix uteri; N76.0 Acute vaginitis; B96.89 Other specified bacterial agents as the cause of diseases classified elsewhere
CPT/HCPCS: 36415; 72100; 73522; 82570; 82627; 83002; 83498; 84146; 84156; 84402; 84403; 85652; 86160; 86225; 86235; 86780; 86803; 87340; 87389; 99212

== ENCOUNTER 2023-04-15 14:43 | Outpatient (AMB) | payer OTHER, SELFPAY ==
[2023-04-15 14:52] VITALS: BP 122/68; BMI 39.9
--- NOTE | 2023-04-15 14:52 | MHC.OFFVIS ---
Intake Vital Signs 04/15/23 14:52 Height 5 ft 2 in Weight 218 lb BMI 39.9 BP 122/68 Intake Visit Reasons: cervical polyp Anesthesiologist Assistant Certified Required: No Information Interpreted: non-clinical & clinical Hair Dresser: Hair Dresser Present (Rosalee) Allergies No Known Allergies Allergy (Verified 04/15/23 14:52) Is last menstrual period known: Yes Last menstrual period: 04/12/23 Post menopausal: No HPI HPI Comments History of Present Illness Details Presenting referred from Roberta Gamboa'Brien for a cervical polyp identified on pelvic exam. The patient was experiences postcoital bleeding few years ago but has not been sexually active last year. Co testing, GC/CT were negative, ultrasound of the pelvis was unremarkable. In addition, the patient is complaining of dysmenorrhea this exacerbated over the last year or so with no associated increase in the flow of the menstrual cycle. Furthermore Co the patient is complaining of hirsutism with no associated nipple discharge BV panel was positive for Gardnerella vaginalis, metronidazole was prescribed, the patient did not started yet [facility] Medical History Encounter to establish care Obesity (BMI 30-39.9) Surgical History History of sinus surgery H/O removal of cyst History of removal of skin mole History of adenoidectomy History of tonsillectomy History of placement of ear tubes Family History Mother Endometriosis Father No problems noted. Brother No problems noted. Brother No problems noted. 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 Current occupational exposures/hazards: No Cognitive needs: No Hearing needs: No Vision needs: Yes (glasses/contacts) Female Reproductive History Menstrual Age of Menarche: 13 Date of last menstrual period: 04/12/23 control method: none Date of last pap smear: 03/13/23 (negative) Review of Systems Const All systems reviewed & are unremarkable except as noted in HPI and below Physical Exam Vital Signs: Last Vital Signs BP 122/68 04/15/23 14:52 BMI result Body Mass Index 39.9 General: Yes no CVA tenderness External Female Exam: normal external appearance and normal appearance of the urethra Speculum Exam - Vagina: normal appearance of the vagina, normal palpation, no lesions and no masses Speculum Exam - Cervix: normal appearance of the cervix, normal palpation, no lesions, no masses and nontender Bimanual exam- vagina & uterus: normal bimanual exam, normal palpation, uterine size normal, normal palpation, uterine shape normal, No Cervical tenderness present and non-tender Bimanual Exam- Adnexa, other: normal adnexae Back/Spine/Pelvis Back: no CVA tenderness Assessment & Plan Assessment & Plan (1) Hirsutism: Code(s): L68.0 - Hirsutism Plan: Testosterone total and free, TSH, DHEA-S were ordered and done this morning, results are still pending. 17 hydroxyprogesterone and prolactin were added (2) Dysmenorrhea, unspecified: Comment: LISA positive Code(s): N94.6 - Dysmenorrhea, unspecified Plan: Recommended nonsteroidal anti-inflammatory drugs day 1-3 q8 hours of every menstrual cycle (3) Cervical polyp: Code(s): N84.1 - Polyp of cervix uteri Plan: Discussed with the patient the finding on pelvic exam, cervical polyp, recommended polypectomy. Instructions given the patient to schedule polypectomy in 2 weeks after completing the course of metronidazole (4) Bacterial vaginosis: Code(s): N76.0 - Acute vaginitis; B96.89 - Other specified bacterial agents as the cause of diseases classified elsewhere Plan: Recommended the patient to start Flagyl 500 mg p.o. b.i.d. x 7 days prior to polypectomy since BV will increase the risk of infections. All questions answered, the patient verbalized understand Orders: Orders 17 Hydroxyprogesterone Today L68.0 - Hirsutism Prolactin Today L68.0 - Hirsutism Coding Level of Care Code Est Pt Level 3 (84172) Diagnoses Hirsutism L68.0 Dysmenorrhea, unspecified N94.6 Cervical polyp N84.1 Bacterial vaginosis N76.0; B96.89
== END 2023-04-15 16:07 | disposition home or self-care (01) ==
PROVIDERS: PCP Nurse Practitioner Family; Visit Provider Obstetrics & Gynecology
DX: L68.0 Hirsutism (principal); N94.6 Dysmenorrhea, unspecified; N84.1 Polyp of cervix uteri; N76.0 Acute vaginitis; B96.89 Other specified bacterial agents as the cause of diseases classified elsewhere
CPT/HCPCS: 99213

== ENCOUNTER 2023-04-22 13:10 | Outpatient (REF) | payer OTHER, SELFPAY | END 2023-04-22 13:11 | disposition home or self-care (01) | LOC: HO.LNP 13:10 | PROVIDERS: PCP Nurse Practitioner Family; Visit Provider Obstetrics & Gynecology | DX: N84.1 Polyp of cervix uteri (principal) | CPT/HCPCS: 57500; 81025; 88305 ==

== ENCOUNTER 2023-04-22 13:10 | Outpatient (AMB) | payer OTHER, SELFPAY ==
--- NOTE | 2023-04-22 13:15 | A.OFFVIS_ITS ---
Intake Vital Signs 04/22/23 13:22 Height 5 ft 2 in Weight 216 lb 0.848 oz BMI 39.5 BP 120/78 Intake Visit Reasons: polypectomy Vice President Business & Corporate Development Required: No Information Interpreted: non-clinical & clinical Corporate Director Of Human Resources: Corporate Director Of Human Resources Present (Rosalee LUCIANO) Accompanied by: Self / Same As Patient Allergies No Known Allergies Allergy (Verified 04/22/23 13:23) Is last menstrual period known: Yes Last menstrual period: 04/12/23 [facility] Medical History Encounter to establish care Obesity (BMI 30-39.9) Surgical History History of sinus surgery H/O removal of cyst History of removal of skin mole History of adenoidectomy History of tonsillectomy History of placement of ear tubes Family History Mother Endometriosis Father No problems noted. Brother No problems noted. Brother No problems noted. 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 Current occupational exposures/hazards: No Cognitive needs: No Hearing needs: No Vision needs: Yes (glasses/contacts) Female Reproductive History Menstrual Age of Menarche: 13 Date of last menstrual period: 04/12/23 Physical Exam Vital Signs: Last Vital Signs BP 120/78 04/22/23 13:22 BMI result Body Mass Index 39.5 Office Procedures VB NET DEVELOPER Biopsy Before the procedure was started, discussed with the patient the procedure technique, alternatives & all the risks associated with the procedure including but not limited to: bleeding , infection, uterine perforation, injury to bladder, vessels, bowels, possible need for transfusion with all its risks, and others. All questions were answered, the patient verbalized understanding and signed the consent. Urine test done in the office was negative Using a long Alexia Clamp the endocervical polyp was grasped and twisted around till it came off, hemostasis was secured using pressure. The patient tolerated the procedure well. Instructions were given to the patient to call if bleeding, temp>100.4 occur. The patient verbalized understanding and agreed with the plan. This note was generated with a voice recognition program. Some errors may have been overlooked during the review of this note. Sometimes these errors may affect the content or meaning of a given sentence. 20117-[id number] of Cervix Procedure code (CPT) selection complete Results AMB Test Urine AMB Test Urine Negative Last Edit by Rosalee Mancuso CMA on 13:26 Results Reviewed Results Reviewed: Laboratory Last Values [facility]st Clinic Negative 04/22/23 13:25 Assessment & Plan Assessment & Plan (1) Cervical polyp: Code(s): N84.1 - Polyp of cervix uteri Orders: Orders AMB VB NET DEVELOPER Biopsy Today N84.1 - Polyp of cervix uteri AMB HCG Urine Test Today Z32.02 - Encounter for test, result negative Coding Level of Care Code Procedure Only Diagnoses Cervical polyp N84.1 CPT Codes VB NET DEVELOPER Biopsy - CPT: 66986-Xheeqj of Cervix ([id number])
[2023-04-22 13:22] VITALS: BP 120/78; BMI 39.5
== END 2023-04-22 13:44 | disposition home or self-care (01) ==
PROVIDERS: PCP Nurse Practitioner Family; Visit Provider Obstetrics & Gynecology
DX: N84.1 Polyp of cervix uteri (principal); Z32.02 Encounter for pregnancy test, result negative
CPT/HCPCS: 57500